=== PATIENT | female | born 1950 | race Hispanic/Latino ===

== ENCOUNTER 2018-10-03 06:28 | Inpatient (IN) | payer MEDICARE, OTHER | END 2018-10-06 17:15 | disposition home health service (06) | LOC: DAHIP 06:28 → 4AH 11:30 | PROC: 0SRC0J9 Replacement of Right Knee Joint with Synthetic Substitute, Cemented, Open Approach (ICD-10-PCS; principal; 2018-10-03 08:34) | DX: M17.11 Unilateral primary osteoarthritis, right knee (principal) ==

== ENCOUNTER 2022-03-17 11:58 | Observation (INO) | payer MEDICARE ==
[~2022-03-17] VITALS: Ht 149.9 cm; Wt 70.5 kg
[~2022-03-17 11:58] MED LIST: ASPI-1012 PO; GLIP10TA PO; HYDR-4457 PO; HYDR12.530 PO; LOSA100T58 PO; METO100T14 PO; PRAV20TA4 PO; SITA1TAB6 PO; SOLI5 PO
[2022-03-17 13:21] LABS: BASOPHILS % (AUTO) 0.5 % (0.0-5.0); EOSINOPHILS % (AUTO) 1.8 % (0.0-8.0); HEMATOCRIT 40.7 % (36-48); LYMPHOCYTES % (AUTO) 23.2 % (21.0-51.0); MEAN CORPUSCULAR HGB CONC 34.6 g/dL (32.0-36.0); MEAN CORPUSCULAR VOLUME 86.6 fL (79-99); MONOCYTES % (AUTO) 6.8 % (3.0-13.0); NEUTROPHILS % (AUTO) 67.3 % (40.0-77.0); PLATELET COUNT (AUTO) 306 K/uL (130-400); RED CELL DISTRIBUTION WIDTH 13.8 % (11.0-15.5); WHITE BLOOD COUNT (AUTO) 11.6 K/uL (4.8-10.8)
[2022-03-17 13:28] LABS: POTASSIUM 3.8 mmol/L (3.5-5.1)
[2022-03-17] MEDS ORDERED: ONDANSETRON 4MG INJ IVP ONE (13:30)
[2022-03-17] MEDS ORDERED: LABETALOL 20MG SYG IV ONE (13:30)
[2022-03-17 13:33] LABS: ALBUMIN 3.9 g/dL (3.5-5.0); TOTAL PROTEIN, SERUM 7.8 g/dL (6.0-8.3)
[2022-03-17 14:25] LABS: APPEARANCE,URINE CLEAR (CLEAR); BILIRUBIN,URINE NEGATIVE (NEGATIVE); COLOR,URINE COLORLESS (YELLOW); GLUCOSE, URINE (UA) NEGATIVE (NEGATIVE); KETONES,URINE NEGATIVE (NEGATIVE); LEUKOCYTE ESTERASE ,URINE NEGATIVE Leu/uL (NEGATIVE); NITRATE,URINE NEGATIVE (NEGATIVE); OCCULT BLOOD,URINE NEGATIVE (NEGATIVE); PROTEIN,URINE NEGATIVE (NEGATIVE); UROBILINOGEN,URINE 0.2 mg/dL (0.2-1.0)
[2022-03-17] MEDS ORDERED: HYDRALAZINE 20MG/ML VIAL IV ONE (15:00)
[2022-03-17] MEDS ORDERED: HYDRALAZINE HCL 10 MG TABLET PO SCH (15:00)
[2022-03-17] MEDS ORDERED: NIFEDIPINE 10 MG CAP PO ONE (16:00)
[2022-03-17] MEDS ORDERED: ACETAMINOPHEN 325 MG TAB PO PRN (16:30)
[2022-03-17] MEDS ORDERED: ONDANSETRON 4MG INJ IVP PRN (16:30)
[2022-03-17] MEDS: INSULIN HUMULIN R 100 UNIT/ML 3ML SQ SCH ×2 (16:30→21:01)
[2022-03-17] MEDS ORDERED: METO-409 PO (19:30)
[2022-03-17] MEDS ORDERED: PRAV20TA4 PO (19:30)
[2022-03-17] MEDS ORDERED: GLIP5TAB11 PO (19:30)
[2022-03-17] MEDS ORDERED: SAXA1TBM2 PO (19:36)
[2022-03-17 20:00] VITALS: BP 118/41
[2022-03-17] MEDS ORDERED: FAMOTIDINE 20MG TAB PO SCH (21:00)
[2022-03-17] MEDS: NIFEDIPINE 10 MG CAP PO SCH (21:00)
[2022-03-17] MEDS ORDERED: HYDR25TA PO (23:00)
[2022-03-17] MEDS ORDERED: LOSA1TAB12 PO (23:00)
[2022-03-17] MEDS ORDERED: SOLI10TA PO (23:00)
[2022-03-17] MEDS ORDERED: CHOL2000 PO (23:02)
[2022-03-17] MEDS ORDERED: ASPI-1005 PO (23:02)
[2022-03-18] VITALS: BP 131/54
[2022-03-18 04:00] VITALS: BP 133/53
[2022-03-18] MEDS: INSULIN HUMULIN R 100 UNIT/ML 3ML SQ SCH (06:17)
[2022-03-18 08:30] VITALS: BP 143/67
[2022-03-18] MEDS ORDERED: NIFE30TA98 PO (08:58)
[2022-03-18] MEDS ORDERED: ASPIRIN 81MG CHEW TAB PO SCH (09:00)
[2022-03-18] MEDS ORDERED: METOPROLOL SUCCINATE 50 MG TAB.SR.24H PO SCH (09:00)
[2022-03-18] MEDS ORDERED: GLIPIZIDE 5 MG TABLET PO SCH (09:00)
[2022-03-18] MEDS ORDERED: ***HM***(Cholecalciferol (Vitamin D3) (Vitamin D3) 50 MCG) PO SCH (09:00)
[2022-03-18] MEDS ORDERED: ENOXAPARIN SODIUM 40 MG/0.4 ML SYRINGE SQ SCH (09:00)
[2022-03-18] MEDS ORDERED: LOSARTAN 100 MG TABLET PO SCH (09:00)
[2022-03-18] MEDS: NIFEDIPINE 10 MG CAP PO SCH (09:04)
[2022-03-18] MEDS ORDERED: SOLIFENACIN SUCCINATE 10 MG PO SCH (17:00)
[2022-03-18] MEDS ORDERED: HYDROCHLOROTHIAZIDE 25 MG TABLET PO SCH (21:00)
[2022-03-18] MEDS ORDERED: METFORMIN HCL PO SCH (21:00)
[2022-03-18] MEDS ORDERED: SAXAGLIPTIN HCL PO SCH (21:00)
[2022-03-18] MEDS ORDERED: SIMVASTATIN 20 MG TABLET PO SCH (21:00)
== END 2022-03-18 10:55 | disposition home or self-care (01) ==
LOC: EDH 11:58 → EDHIP 15:35 → INTOOBSV 15:35 → 2AH 17:32
PROVIDERS: ADMIT Hospitalist; ATTEND Hospitalist
DX: I16.0 Hypertensive urgency (principal); E11.65 Type 2 diabetes mellitus with hyperglycemia; R00.1 Bradycardia, unspecified; E78.5 Hyperlipidemia, unspecified; E66.9 Obesity, unspecified; I10 Essential (primary) hypertension; E78.00 Pure hypercholesterolemia, unspecified; Z79.899 Other long term (current) drug therapy; Z68.32 Body mass index [BMI] 32.0-32.9, adult; Z96.653 Presence of artificial knee joint, bilateral; Z79.82 Long term (current) use of aspirin; Z90.49 Acquired absence of other specified parts of digestive tract; Z98.891 History of uterine scar from previous surgery; Z98.890 Other specified postprocedural states
CPT/HCPCS: 96374; 96375; 99285; 84443; 84484; 80053; 85025; 82948 ×3; 81003; 36415; 71045; 93005 ×2; 96372; J1815; J0360; J2405; G0378 ×3; J1650

== ENCOUNTER 2022-03-22 06:18 | Emergency (ER) | payer MEDICARE ==
[~2022-03-22] VITALS: Ht 149.9 cm; Wt 68.5 kg
[~2022-03-22 06:18] MED LIST changes: +ASPI-1005 PO; -ASPI-1012 PO; +CHOL2000 PO; -GLIP10TA PO; +GLIP5TAB11 PO; -HYDR-4457 PO; -HYDR12.530 PO; +HYDR25TA PO; -LOSA100T58 PO; +LOSA1TAB12 PO; +METO-409 PO; -METO100T14 PO; +NIFE30TA98 PO; +SAXA1TBM2 PO; -SITA1TAB6 PO; +SOLI10TA PO; -SOLI5 PO
[2022-03-22 06:51] VITALS: BP 153/45
== END 2022-03-22 08:26 | disposition home or self-care (01) ==
LOC: EDH 06:18
DX: R53.1 Weakness (principal); I10 Essential (primary) hypertension; E11.9 Type 2 diabetes mellitus without complications; E78.00 Pure hypercholesterolemia, unspecified; Z90.49 Acquired absence of other specified parts of digestive tract; Z98.890 Other specified postprocedural states; Z79.899 Other long term (current) drug therapy; Z79.82 Long term (current) use of aspirin; Z79.84 Long term (current) use of oral hypoglycemic drugs; Z88.8 Allergy status to other drugs, medicaments and biological substances

== ENCOUNTER → 2022-08-10 | Outpatient (CLI) | payer OTHER ==
[~2022-08-10] MED LIST changes: +DAPA10TA PO; -GLIP5TAB11 PO; +HYDR-4154 PO; -HYDR25TA PO; +ISOS10TA2 PO; -LOSA1TAB12 PO; +METF-527 PO; +METO-408 PO; -METO-409 PO; +NIFE-40 PO; -NIFE30TA98 PO; -SAXA1TBM2 PO
== END | disposition home or self-care (01) ==
LOC: SHCH 09:42
PROVIDERS: ATTEND Internal Medicine Cardiovascular Disease
DX: I87.2 Venous insufficiency (chronic) (peripheral) (principal)
CPT/HCPCS: 93970

== ENCOUNTER 2023-12-04 07:19 | Emergency (ER) | payer OTHER ==
[~2023-12-04] VITALS: Ht 149.9 cm; Wt 72.1 kg
[~2023-12-04 07:19] MED LIST changes: -HYDR-4154 PO; +HYDR50TA37 PO
[2023-12-04] MEDS: ONDANSETRON 4MG INJ IVP ONE (08:01)
[2023-12-04] MEDS: PANTOPRAZOLE 40 MG/VIAL IVP ONE (08:01)
[2023-12-04 08:04] LABS: BASOPHILS # (AUTO) 0.08 K/uL (0.00-0.20); BASOPHILS % (AUTO) 0.7 % (0.0-5.0); EOSINOPHILS # (AUTO) 0.53 K/uL (0.00-0.70); EOSINOPHILS % (AUTO) 4.5 % (0.0-8.0); HEMATOCRIT 44.7 % (36-48); IMMATURE GRANULOCYTE ABSOLUTE 0.05 K/uL (0-1); LYMPHOCYTES # (AUTO) 3.5 K/uL (1.0-4.8); LYMPHOCYTES % (AUTO) 29.8 % (21.0-51.0); MEAN CORPUSCULAR HEMOGLOBIN 29.2 pg (27.0-33.0); MEAN CORPUSCULAR HGB CONC 32.7 g/dL (32.0-36.0); MEAN CORPUSCULAR VOLUME 89.4 fL (79-99); MONOCYTES # (AUTO) 1.2 K/uL (0.1-1.0); MONOCYTES % (AUTO) 9.8 % (3.0-13.0); NEUTROPHILS # (AUTO) 6.4 K/uL (1.8-7.7); NEUTROPHILS % (AUTO) 54.8 % (40.0-77.0); PLATELET COUNT (AUTO) 252 K/uL (130-400); RED CELL DISTRIBUTION WIDTH 13.3 % (11.0-15.5); WHITE BLOOD COUNT (AUTO) 11.7 K/uL (4.8-10.8)
[2023-12-04 08:16] LABS: INR <= 0.93 (0.85-1.15); PROTHROMBIN TIME 9.8 SEC (9.6-11.6)
[2023-12-04 08:29] LABS: CREATININE 1.1 mg/dL (0.5-1.0); POTASSIUM 3.9 mmol/L (3.5-5.1)
[2023-12-04] MEDS ORDERED: METO-391 PO (08:32)
[2023-12-04 08:33] LABS: APPEARANCE,URINE CLEAR (CLEAR); BILIRUBIN,URINE NEGATIVE (NEGATIVE); COLOR,URINE COLORLESS (YELLOW); GLUCOSE, URINE (UA) >=1000 mg/dL (NEGATIVE); KETONES,URINE NEGATIVE (NEGATIVE); LEUKOCYTE ESTERASE ,URINE NEGATIVE Leu/uL (NEGATIVE); NITRATE,URINE NEGATIVE (NEGATIVE); OCCULT BLOOD,URINE NEGATIVE (NEGATIVE); PH,URINE 5.5 (5.0-8.0); PROTEIN,URINE 50 mg/dL (NEGATIVE); UROBILINOGEN,URINE 0.2 mg/dL (0.2-1.0)
[2023-12-04] MEDS ORDERED: LOSA50TA64 PO (08:33)
[2023-12-04 08:35] LABS: ADD UA MICROSCOPIC YES
[2023-12-04 08:36] LABS: BACTERIA,URINE RARE /HPF (None Seen); RBC,URINE 0-1 /HPF (0-1); SQUAMOUS EPITHELIAL CELL,UR RARE /HPF (0-2)
[2023-12-04 08:42] LABS: B-TYPE NATRIURETIC PEPTIDE 57 pg/mL (0-100)
[2023-12-04] MEDS: NIFEDIPINE 10 MG CAP PO STA (10:00)
[2023-12-04] MEDS: NIFEDIPINE 10 MG CAP PO ONE (10:09)
[2023-12-04 10:28] VITALS: BP 166/61; PULSE 53; RESP 14; O2SAT 96
== END 2023-12-04 10:38 | disposition home or self-care (01) ==
LOC: EDH 07:19
DX: I10 Essential (primary) hypertension (principal); E11.9 Type 2 diabetes mellitus without complications; E78.00 Pure hypercholesterolemia, unspecified; Z90.49 Acquired absence of other specified parts of digestive tract; Z79.82 Long term (current) use of aspirin; Z79.84 Long term (current) use of oral hypoglycemic drugs; Z79.899 Other long term (current) drug therapy; R07.9 Chest pain, unspecified
CPT/HCPCS: 99285; 82550; 83735; 84484; 80061; 80048; 83880; 85025; 85610; 87077; 87088; 87186; 82948; 81001; 36415; 71045; 96374; 96375; 93005; J2405; C9113

== ENCOUNTER 2025-02-12 18:01 | Emergency (ER) | payer OTHER ==
[~2025-02-12] VITALS: Ht 149.9 cm; Wt 66.7 kg
[~2025-02-12 18:01] MED LIST changes: -HYDR50TA37 PO; -ISOS10TA2 PO; +LOSA50TA64 PO; -METF-527 PO; +METO-391 PO; -METO-408 PO; -PRAV20TA4 PO; +PRAV20TA59 PO
[2025-02-12 18:17] VITALS: BP 172/58; PULSE 64; RESP 18; TEMP 98.1; O2SAT 96
--- NOTE | 2025-02-12 18:30 | ERN ---
ED Note History of Present Illness Stated Complaint: ABSCESS Chief Complaint: Abscess Time Seen by : 18:07 Dictation: PATIENT IS A 75-YEAR-OLD DIABETIC FEMALE HERE FROM THE DOCTOR'S OFFICE WITH COMPLAINTS OF HAVING A LEFT LABIAL ABSCESS WITH SWELLING AND TENDERNESS TO THE PERINEUM IN THE RIGHT INGUINAL AREA SHE HAS HAD FOR SEVERAL DAYS. NO NAUSEA NO VOMITING NO FEVER NO CHILLS. SHE STATES SHE HAS HAD DRAINAGE OVER THE LAST SEVERAL DAYS. STATES SHE HAS BEEN TAKING AMOXICILLIN [id number] A 1000 MG TWICE A DAY SHE GOT FROM [facility]. STATES HER BLOOD SUGARS HAS BEEN HIGH AND WAS RECOMMENDED BY TO COME TO THE EMERGENCY ROOM FOR FURTHER EVALUATION AND TREATMENT. Allergies: Coded Allergies: Adhesive Bandage (Unverified Allergy, Unknown, SKIN PEELS, 12/04/23) allopurinol (Unverified Allergy, Unknown, BLOTCHING,RASH, FLESH PAIN,ANXIETY, 12/04/23) hydralazine (Unverified Allergy, Unknown, 12/04/23) Home Meds Active Scripts Dapagliflozin Propanediol (Farxiga) 10 Mg Tablet, 10 MG PO DAILY for DIABETES MELLITUS for 30 Days, #30 TAB 3 Refills Prov:SHARLENE JERONIMO Jr., MD 04/05/22 Nifedipine (Nifedipine ER) 30 Mg Tab.er.24, 30 MG PO DAILY for 30 Days, #30 TAB 1 Refill Prov:SHARLENE JERONIMO Jr., MD 04/05/22 Reported Medications Losartan Potassium (Losartan Potassium) 50 Mg Tablet, 50 MG PO BID, TAB TAKE TWO TABS PO IF SYSTOLIC BLOOD PRESSURE IS OVER 160 12/04/23 Metoprolol Succinate (Metoprolol Succinate) 50 Mg Tab.er.24h, 50 MG PO BID, TAB 12/04/23 Cholecalciferol (Vitamin D3) (Vitamin D3) 50 Mcg Capsule, 50 MCG PO DAILY, CAP 03/17/22 Aspirin (ASPIRIN 81MG CHEW TAB) 81 Mg Tab.chew, 81 MG PO DAILY, TAB.CHEW 03/17/22 Solifenacin Succinate (Vesicare) 10 Mg Tablet, 1 TAB PO DAILYDINNER 03/17/22 Pravastatin Sodium (Pravastatin Sodium) 20 Mg Tablet, 20 MG PO DAILY, TAB 03/17/22 Past Medical History Past Medical History: Arthritis, Diabetes-Type II, High Cholesterol, Hypertension, Renal Disese, Renal Failure, Sciatica Additional Past Medical Hx: HYPOMAGNESIUM, HYPONATREMIA Surgical History: Cholecystectomy Surgical History Other: HEART CATH, RIGHT KNEE REPLACEMENT Social History: Other History: Not Applicable RN Note Reviewed/Agreed w/PFSH: Yes Review of System Dictation CONSTITUTIONAL: NEGATIVE EXCEPT FOR HPI HEAD/FACE: NEGATIVE EXCEPT FOR HPI EENT: NEGATIVE EXCEPT FOR HPI RESPIRATORY: NEGATIVE EXCEPT FOR HPI GASTROINTESTINAL/ABDOMINAL: NEGATIVE EXCEPT FOR HPI GENITOURINARY: NEGATIVE EXCEPT FOR HPI PERINEAL LESIONS AND SWELLING TENDERNESS TO INCLUDE LEFT LABIA MAJORA MUSCULOSKELETAL: NEGATIVE EXCEPT FOR HPI INTEGUMENTARY: NEGATIVE EXCEPT FOR HPI NEUROLOGICAL/PSYCH: NEGATIVE EXCEPT FOR HPI HEMATOLOGIC/LYMPHATIC: NEGATIVE EXCEPT FOR HPI ALL SYSTEMS NEGATIVE, EXCEPT NOTED ABOVE. 13 POINT REVIEW OF SYSTEMS ASSESSED AND ALL NEGATIVE EXCEPT FOR ABOVE. Initial Vital Sign VS Vital Signs Date Time Temp Pulse Resp B/P (MAP) Pulse Ox O2 Delivery O2 Flow Rate FiO2 02/12/25 18:02 98.1 64 18 172/58 96 Room Air 02/12/25 18:17 0 21 Physical Exam Dictation VITAL SIGNS REVIEWED GENERAL APPEARANCE: ALERT, ORIENTED X 3, SEVERE ACUTE DISTRESS, WELL DEVELOPED, NOURISHED. OBESE HEAD AND FACE: NON-TRAUMATIC. EYES: PERRL, PINK CONJUNCTIVAS, EYELID NO TRAUMA, ANTERIOR CHAMBER WITH ARCUS SENILIS. EARS: PINNAS INTACT AND NO SIGNS OF TRAUMA OR ERYTHEMA EAR CANALS CLEAR AND NO DISCHARGE TM NO ERYTHEMA NOSE: NO DISCHARGE, NO BLEEDING. OROPHARYNX: MOUTH NORMAL, TONGUE PINK, PHARYNX CLEAR,NO ERYTHEMA, TONSILS NO EXUDATES, NO ABSCESSES NOTED, MUCOUS MEMBRANE MOIST NECK: SUPPLE, NON-TENDER, NO THYROMEGALY, NO MASSES, NO JVD, NO BRUITS BREAST:DEFERRED CHEST:NO TENDERNESS, NO CREPITUS, NO PARADOXICAL MOVEMENT, NO RETRACTIONS LUNGS:CLEAR, WELL-VENTILATED, SYMMETRIC, NO RALES, NO WHEEZING, NO RHONCHI, NO STRIDOR, GOOD BREATH SOUNDS BILATERALLY HEART: REGULAR RATE, REGULAR RHYTHM, NO MURMUR, NO GALLOPS VASCULAR: NO PERIPHERAL EDEMA, ABDOMEN: SOFT, POSITIVE BOWEL SOUNDS, NONDISTENDED, NO GUARDING, NONTENDER, NO REBOUND, NO MASSES NO HEPATOMEGALY, NO SPLENOMEGALY, NO ROSARIO'S SIGN, NO HERNIAS. RECTAL: DEFERRED GENITAL: LEFT LABIAL SWELLING TENDERNESS FIRM TO TOUCH. RIGHT INGUINAL AND SUPERIOR PERINEAL AREA WITH ERYTHEMA SWELLING TENDERNESS. NO DRAINAGE AT THIS TIME. ARACELIS RN ROOM WITH THE EXAM NEUROLOGICAL: NORMAL SPEECH, MOTOR FUNCTION INTACT, SENSORY FUNCTION INTACT MUSCULOSKELETAL: NECK NONTENDER, FULL RANGE OF MOTION, BACK NONTENDER, FULL RANGE OF MOTION, EXTREMITIES: NONTENDER, FULL RANGE OF MOTION SKIN: COLOR PINK, DRY, NO TURGOR, NO RASH, NO LACERATIONS, NO ABRASIONS, NO CONTUSIONS. LYMPHATIC: DEFERRED Results (Laboratory/Radiology) Laboratory/Radiology Laboratory Tests Test 02/12/25 18:40 02/12/25 18:43 Urine Color LIGHT-YELLOW (YELLOW) Urine Appearance CLEAR (CLEAR) Urine pH 5.5 (5.0-8.0) Urine Specific [place] 1.008 (1.001-1.031) Urine Protein 20 mg/dL (NEGATIVE) H Urine Glucose (UA) >=1000 mg/dL (NEGATIVE) H Urine Ketones NEGATIVE mg/dL (NEGATIVE) Urine Occult Blood NEGATIVE (NEGATIVE) Urine Nitrate NEGATIVE (NEGATIVE) Urine Bilirubin NEGATIVE mg/dL (NEGATIVE) Urine Urobilinogen 0.2 mg/dL (0.2-1.0) Urine Leukocyte Esterase NEGATIVE Johanna/uL Urine RBC 0-1 /HPF (0-1) Urine WBC 0-1 /HPF (0-1) Urine Squamous Epithelial Cells RARE /HPF (0-2) Urine Bacteria None /HPF (None Seen) White Blood Count 12.5 K/uL (4.8-10.8) H Red Blood Count 4.81 MIL/uL (4.00-5.50) Hemoglobin 14.1 g/dL (12.0-16.0) Hematocrit 41.7 % (36-48) Mean Corpuscular Volume 86.7 fL (79-99) Mean Corpuscular Hemoglobin 29.3 pg (27.0-33.0) Mean Corpuscular Hemoglobin Concent 33.8 g/dL (32.0-36.0) Red Cell Distribution Width 13.2 % (11.0-15.5) Platelet Count 280 K/uL (130-400) Mean Platelet Volume 11.1 fL (7.5-10.5) H Immature Granulocyte % (Auto) 0.3 % (0-1) Neutrophils (%) (Auto) 58.4 % (40.0-77.0) Lymphocytes (%) (Auto) 28.1 % (21.0-51.0) Monocytes (%) (Auto) 9.1 % (3.0-13.0) Eosinophils (%) (Auto) 3.5 % (0.0-8.0) Basophils (%) (Auto) 0.6 % (0.0-5.0) Neutrophils # (Auto) 7.3 K/uL (1.8-7.7) Lymphocytes # (Auto) 3.5 K/uL (1.0-4.8) Monocytes # (Auto) 1.1 K/uL (0.1-1.0) H Eosinophils # (Auto) 0.44 K/uL (0.00-0.70) Basophils # (Auto) 0.07 K/uL (0.00-0.20) Absolute Immature Granulocyte (auto 0.04 K/uL (0-1) Nucleated Red Blood Cells 0.0 % (0.0-0.19) Sodium Level 136 mmol/L (136-145) Potassium Level 4.1 mmol/L (3.5-5.1) Chloride Level 102 mmol/L (101-111) Carbon Dioxide Level 24 mmol/L (21-32) Blood Urea Nitrogen 32 mg/dL (7-18) H Creatinine 1.3 mg/dL (0.5-1.0) H Glomerular Filtration Rate Calc 43 mL/min (>90) Random Glucose 104 mg/dL (70-105) Lactic Acid Level 1.4 mmol/L (0.8-2.5) Total Calcium 9.7 mg/dL (8.5-10.1) Labs Reviewed?: Yes ED Course ED Course Orders Procedure Category Date Status Time Blood Cult REMY 02/12/25 In Process 18:26 Lactic Acid LAB 02/12/25 Complete 18:26 Cbc With Differential LAB 02/12/25 Complete 18:26 Urinalysis Profile LAB 02/12/25 Complete 18:26 0.9%Nacl 1000ml (Ns PHA 02/12/25 In Process 1000ml) 18:30 Morphine 2mg Syg PHA 02/12/25 In Process (Morphine 2mg Syg) 18:30 Ondansetron 4mg Inj PHA 02/12/25 In Process (Zofran 4mg Inj) 18:30 Basic Metabolic Panel LAB 02/12/25 Complete 18:26 Diphenhydramine Hcl PHA 02/12/25 In Process (Benadryl Cap) 19:00 Diphenhydramine Hcl PHA 02/12/25 Complete (Benadryl Cap) 18:57 Clindamycin Ivpb PHA 02/12/25 In Process 600mg/50ml (Cleocin 19:05 Lidocaine Hcl 1% 20ml PHA 02/12/25 Complete Vial (Lidocaine Hc 20:00 Aerobic Culture REMY 02/12/25 Logged 19:54 Morphine 2mg Syg PHA 02/12/25 Complete (Morphine 2mg Syg) 20:00 Current Medications Medications (Trade) Dose Ordered Sig/Mary Route PRN Reason Start Time Stop Time Status Last Admin Dose Admin Clindamycin HCl/ Dextrose 50 ml @ 100 mls/hr ONCE IV 02/12/25 19:05 02/12/25 23:59 02/12/25 19:56 Diphenhydramine HCl (BENAdryl CAP) 25 mg ONCE PO 02/12/25 19:00 02/12/25 23:00 02/12/25 18:59 Diphenhydramine HCl (BENAdryl CAP) 25 mg STK-MED ONCE .ROUTE 02/12/25 18:57 02/12/25 18:58 DC Lidocaine HCl (Lidocaine HCl 1% 20ml Vial) 10 ml ONCE ONCE INJ 02/12/25 20:00 02/12/25 20:01 DC 02/12/25 20:00 Morphine Sulfate (morPHINE 2MG SYG) 2 mg ONCE IVP 02/12/25 18:30 02/12/25 22:30 02/12/25 18:49 Morphine Sulfate (morPHINE 2MG SYG) 2 mg ONCE ONCE IVP 02/12/25 20:00 02/12/25 20:01 DC 02/12/25 20:03 Ondansetron HCl (zoFRAN 4MG INJ) 4 mg ONCE IVP 02/12/25 18:30 02/12/25 23:00 02/12/25 18:49 Sodium Chloride 1,000 ml @ 0 mls/hr ONCE IV 02/12/25 18:30 02/13/25 18:29 02/12/25 18:49 Vital Signs Date Time Temp Pulse Resp B/P (MAP) Pulse Ox O2 Delivery O2 Flow Rate FiO2 02/12/25 18:17 98.1 64 18 172/58 96 Room Air* 0 21 02/12/25 18:02 98.1 64 18 172/58 96 Room Air 2040/SPOKE WITH PATIENT AT LENGTH REGARDING DECISION TO DISCHARGE. PATIENT GIVEN 600 MG CLINDAMYCIN A LOADING DOSE. SHE WAS GIVEN WOUND CARE INSTRUCTIONS INCLUDING MAY TAKE A SHOWER HOWEVER NO BATH TUBS KEEP INCISION LINE COVERED TAKE ANTIBIOTICS DIRECTED UNTIL GONE FOLLOW UP WITH HER CALENDER FEEDER DOCTOR IN THE NEXT 1-2 DAYS Medical Decision Making MDM MEDICAL DECISION-MAKING BASED ON BASIC LABS TO RULE OUT INFECTION ELECTROLYTE IMBALANCE ETC. NO IMAGING INDICATED LEFT BARTHOLIN CYST WAS I AND D WITH CULTURE SENT TO LAB PATIENT LOADED WITH 600 MG CLINDAMYCIN SHE AND HER DAUGHTER WERE GIVEN WOUND CARE INSTRUCTIONS MINIMAL BLEEDING DISCHARGED HOME WITH HER DAUGHTER TO FOLLOW UP WITH HER CALENDER FEEDER DOCTOR IN THE NEXT 1-2 DAYS. Procedure Procedure Dictation: 2030/PROCEDURE EXPLAINED TO PATIENT AND DAUGHTER THEY AGREED TO PROCEED PATIENT WAS PLACED IN LITHOTOMY POSITION MORPHINE 2 MG GIVEN IV PUSH BY RN LEFT LABIA WAS PREPPED WITH BETADINE 2 ML 1% LIDOCAINE PLAIN USED FOR LOCAL ANESTHESIA 11. SCALPEL WAS USED TO MAKE A 1.5 CM INCISION APPROXIMATELY 5 ML PURULENT DRAINAGE RETURNED FORCEPS WERE USED TO EXPLORE ANY LOCULATIONS CULTURE WAS OBTAINED AND SENT TO LAB MINIMAL BLEEDING PATIENT TOLERATED WELL DX & DISP Disposition: Discharge Departure Impression: Primary Impression: Cyst of left Bartholin's gland Additional Impressions: Diabetes mellitus with hyperglycemia, Stage 3 chronic kidney disease Condition: Stable Scripts Acetaminophen with Codeine (Acetaminophen-Cod #3 Tablet) 300 Mg-30 Mg Tablet 1 TAB PO Q4H PRN for MODERATE TO SEVERE PAIN, #15 TAB Prov: JARED COBB NP 02/12/25 Clindamycin HCl (Clindamycin HCl) 300 Mg Capsule 1 CAP PO QID for 10 Days, #40 CAP 0 Refills Prov: JARED COBB NP 02/12/25 Additional Instructions: Follow-up with primary care provider in 1 to 2 days. Take medications as directed here in the emergency room. Okay to continue home medications unless otherwise discussed during your visit in the emergency room today. Return to your nearest emergency room if symptoms worsen or if there is no improvement. Call 911 if you need immediate assistance. Take Tylenol or Motrin [id number] as needed and if no contraindications are present. Increase oral hydration. A wound culture or urine culture was ordered here in the emergency room department please follow-up with primary care provider and advise them to get repeat ports from our facility. If you had any Lopez wrap/splints that were applied here, please do not remove them until you see your primary care or specialty. Take antibiotics as directed until gone. Okay to shower and wash area with soap and water. Dry thoroughly and replace dry dressing to incision line. No hot tubs, no bath tubs. Follow up with the your obstetrics gyn doctor in the next 1- 2 days. Referrals: KEISHA RAO M.D. (PCP) Time of Disposition: 20:45 I have reviewed the case, and I agree with, Diagnosis and Plan JARED COBB NP Feb 12, 2025 18:30
[2025-02-12] MEDS: 0.9%NACL 1000ML 1,000 ML IV SCH (18:49)
[2025-02-12 18:50] LABS: IMMATURE GRANULOCYTE ABSOLUTE 0.04 K/uL (0-1); NUCLEATED RED BLOOD CELLS 0.0 % (0.0-0.19); PLATELET COUNT (AUTO) 280 K/uL (130-400); RED BLOOD CELL COUNT(AUTO) 4.81 MIL/uL (4.00-5.50); RED CELL DISTRIBUTION WIDTH 13.2 % (11.0-15.5); WHITE BLOOD COUNT (AUTO) 12.5 K/uL (4.8-10.8)
[2025-02-12 19:09] LABS: APPEARANCE,URINE CLEAR (CLEAR); GLUCOSE, URINE (UA) >=1000 mg/dL (NEGATIVE); LEUKOCYTE ESTERASE ,URINE NEGATIVE Leu/uL (NEGATIVE); NITRATE,URINE NEGATIVE (NEGATIVE); OCCULT BLOOD,URINE NEGATIVE (NEGATIVE)
[2025-02-12 19:18] LABS: ADD UA MICROSCOPIC YES
[2025-02-12 19:23] LABS: SQUAMOUS EPITHELIAL CELL,UR RARE /HPF (0-2)
[2025-02-12 19:46] LABS: CREATININE 1.3 mg/dL (0.5-1.0); GLOMERULAR FILTR. RATE CALC 43.0 mL/min (>90); GLUCOSE,RANDOM 104.0 mg/dL (70-105); SODIUM SERUM 136.0 mmol/L (136-145); UREA NITROGEN, BLOOD 32.0 mg/dL (7-18)
[2025-02-12] MEDS: CLINDAMYCIN IVPB 600MG/50ML 50 ML IV SCH (19:56)
[2025-02-12] MEDS: LIDOCAINE HCL 1% 20 ML VIAL INJ ONE (20:00)
[2025-02-12] MEDS ORDERED: CLIN-141 PO (20:46)
[2025-02-12] MEDS ORDERED: ACET-2079 PO (20:46)
--- NOTE | 2025-02-12 20:55 | NUR ---
PENDING FLUIDS BEFORE D/C, AWARE
--- NOTE | 2025-02-15 10:26 | NUR ---
DR. HOROWITZ MADE AWARE OF LAB CULTURE POSITIVE FOR MRSA, PATIENT PHARMACY CALLED TO PLACE NEW ANTIBIOTIC ORDER PER DR. HOROWITZ. ATTEMPTED TO CALL PATIENT 3 TIMES WITH NO ANSWER TO INFORM OF NEW MEDICATION ORDER AND TO STOP PREVIOUSLY PRESCRIBED ANTIBIOTIC./ANIBAL
== END 2025-02-12 21:42 | disposition home or self-care (01) ==
LOC: EDH 18:01
DX: N75.0 Cyst of Bartholin's gland (principal); E11.65 Type 2 diabetes mellitus with hyperglycemia; I12.9 Hypertensive chronic kidney disease with stage 1 through stage 4 chronic kidney disease, or unspecified chronic kidney disease; E11.22 Type 2 diabetes mellitus with diabetic chronic kidney disease; N18.30 Chronic kidney disease, stage 3 unspecified; M19.90 Unspecified osteoarthritis, unspecified site; E78.00 Pure hypercholesterolemia, unspecified; Z79.82 Long term (current) use of aspirin; Z79.84 Long term (current) use of oral hypoglycemic drugs; Z79.899 Other long term (current) drug therapy; Z90.49 Acquired absence of other specified parts of digestive tract; Z96.651 Presence of right artificial knee joint
CPT/HCPCS: 99284; 96374; 56420; 96375; 80048; 85025; 87040 ×2; 87086 ×2; 87186 ×2; 83605; 81001; 36415; 87070; Q0163; J2270 ×2; J7030; J2405; J3490; 56405